=== PATIENT | male | born 1965 | race Caucasian/White ===

== ENCOUNTER 2022-06-18 09:54 | Day surgery (SDC) | payer OTHER ==
[2022-06-18] MEDS ORDERED: Sodium Bicarbonate 2.5 MEQ/5 ML VIAL ONE (10:00)
[2022-06-18] MEDS ORDERED: Lidocaine 1% PF 5 ML VIAL ONE (10:00)
[2022-06-18 11:10] VITALS: BP 120/84; TEMP 97.8
== END 2022-06-18 11:00 | disposition home or self-care (01) ==
LOC: ULT 09:54
PROVIDERS: ATTEND Family Medicine
PROC: 0G9G3ZX Drainage of Left Thyroid Gland Lobe, Percutaneous Approach, Diagnostic (ICD-10-PCS; principal; 2022-06-18)
DX: E04.1 Nontoxic single thyroid nodule (principal)
CPT/HCPCS: 10005; 88173; 88305

== ENCOUNTER 2025-01-18 19:31 | Inpatient (IN) | payer OTHER ==
[~2025-01-18 19:31] MED LIST: Iopamidol-370 76% 500 ML MDV (1 ML CHARGE) ONE
[2025-01-18 20:07] LABS: Bacteria/HPF 2+ HPF (None Seen); CAUTI Indications for Culture Acute Hematuria; Glucose, Urine (Dipstick) Normal (Negative); Leukocyte 500 Leu/uL (Negative); Protein, Urine (Dipstick) 100 mg/dL (Neg-Trace); RBC/HPF Greater than 50 HPF (0-3); Specific Gravity, Urine 1.010 (1.002-1.036); WBC/HPF Greater than 50 HPF (0-3)
[2025-01-18 20:09] LABS: Urine Culture Reflex Yes Yes
[2025-01-19 00:04] LABS: #Basophils 0.08 10x3/uL (0.0-0.2); #Eosinophils 0.14 10x3/uL (0.0-0.7); #Monocytes 0.77 10x3/uL (0.11-0.59); #Neutrophils 8.36 10x3/uL (1.40-6.50); %Basophils 0.7 % (0.0-1.0); %Eosinophils 1.3 % (0.0-10.0); %Lymphocytes 15.7 % (21.0-51.0); %Monocytes 6.9 % (0.0-10.0); %Neutrophils 75.1 % (42.0-75.0); Hematocrit 47.2 % (42.0-52.0); Hemoglobin 15.8 g/dL (14.0-18.0); Mean Corpuscular Hemoglobin 29.9 pg (27.0-31.0); Mean Corpuscular Volume 89.4 fL (78.0-98.0); Platelet Count 255 10x3/uL (130-400); Red Blood Cell (RBC) Count 5.28 mill/uL (4.70-6.10); White Blood Cell (WBC) Count 11.13 10x3/uL (4.8-10.8)
[2025-01-19 00:18] LABS: ALT (SGPT) 16 U/L (Less than 45); AST (SGOT) 24 U/L (11-34); Albumin 4.6 g/dL (3.1-4.5); Alkaline Phosphatase 81 U/L (40-110); Anion Gap 16 mmol/L (10-20); BUN (Urea Nitrogen) 18 mg/dL (8.4-25.7); Bilirubin, Total 0.4 mg/dL (0.3-1.2); Calc. Creatinine Clearance 0 mL/min (70-130); Calcium 9.7 mg/dL (7.8-10.44); Carbon Dioxide 25 mmol/L (22-29); Chloride 104 mmol/L (98-107); Globulin 3.5 g/dL (2.4-3.5); Glucose 111 mg/dL (70-105); Potassium 3.8 mmol/L (3.5-5.1); Sodium 141 mmol/L (136-145)
[2025-01-19] MEDS ORDERED: Ondansetron PF 4 MG/2 ML Vial IVP PRN (04:34)
[2025-01-19] MEDS ORDERED: Senokot S 8.6-50 MG TAB PO PRN (04:34)
[2025-01-19] MEDS ORDERED: Calcium Carbonate 500 MG ChewTAB PO PRN (04:34)
[2025-01-19] MEDS ORDERED: Bisacodyl 10 MG SUPP PR PRN (04:34)
[2025-01-19] MEDS ORDERED: Guaifenesin DM 100-10/5 ML UDCUP PO PRN (04:34)
[2025-01-19] MEDS ORDERED: Melatonin 3 MG TAB PO PRN (04:34)
[2025-01-19] MEDS ORDERED: Electrolyte Replacement Protocol 1 EACH FS SCH (04:45)
[2025-01-19] MEDS ORDERED: Potassium Chloride 20 MEQ in Premix 1 BAG IVPB PRN (04:45)
[2025-01-19] MEDS ORDERED: PHOS-NAK 1 PKT PACK PO PRN (04:45)
[2025-01-19] MEDS ORDERED: Magnesium 2 GM/50 ML(in water) 2 GM in Premix 1 BAG IVPB PRN (04:45)
[2025-01-19] MEDS ORDERED: Acetaminophen 325 MG TAB ONE (05:57)
[2025-01-19 09:38] VITALS: BMI 20.9
[2025-01-19 13:17] LABS: Hematocrit 40.5 % (42.0-52.0); Hemoglobin 13.6 g/dL (14.0-18.0)
[2025-01-19] MEDS: HYDROcodone/Acetaminophen 5/325 mg Tablet PO PRN (14:50)
[2025-01-19 20:29] LABS: Hematocrit 38.5 % (42.0-52.0); Hemoglobin 12.9 g/dL (14.0-18.0)
[2025-01-20 07:21] LABS: #Basophils 0.09 10x3/uL (0.0-0.2); #Eosinophils 0.26 10x3/uL (0.0-0.7); #Monocytes 0.61 10x3/uL (0.11-0.59); #Neutrophils 5.25 10x3/uL (1.40-6.50); %Basophils 1.1 % (0.0-1.0); %Eosinophils 3.1 % (0.0-10.0); %Lymphocytes 25.1 % (21.0-51.0); %Monocytes 7.3 % (0.0-10.0); %Neutrophils 63.3 % (42.0-75.0); Hematocrit 43.5 % (42.0-52.0); Hemoglobin 14.2 g/dL (14.0-18.0); Mean Corpuscular Hemoglobin 29.9 pg (27.0-31.0); Mean Corpuscular Volume 91.6 fL (78.0-98.0); Platelet Count 197 10x3/uL (130-400); Red Blood Cell (RBC) Count 4.75 mill/uL (4.70-6.10); White Blood Cell (WBC) Count 8.30 10x3/uL (4.8-10.8)
[2025-01-20 07:52] LABS: Anion Gap 13 mmol/L (10-20); BUN (Urea Nitrogen) 14 mg/dL (8.4-25.7); Calc. Creatinine Clearance 82 mL/min (70-130); Calcium 9.0 mg/dL (7.8-10.44); Carbon Dioxide 27 mmol/L (22-29); Chloride 106 mmol/L (98-107); Glucose 103 mg/dL (70-105); Potassium 3.8 mmol/L (3.5-5.1); Sodium 142 mmol/L (136-145)
[2025-01-20] MEDS: Acetaminophen 325 MG TAB PO PRN (11:28)
[2025-01-21 06:38] LABS: #Basophils 0.08 10x3/uL (0.0-0.2); #Eosinophils 0.26 10x3/uL (0.0-0.7); #Monocytes 0.65 10x3/uL (0.11-0.59); #Neutrophils 5.56 10x3/uL (1.40-6.50); %Basophils 1.0 % (0.0-1.0); %Eosinophils 3.1 % (0.0-10.0); %Lymphocytes 20.8 % (21.0-51.0); %Monocytes 7.8 % (0.0-10.0); %Neutrophils 67.1 % (42.0-75.0); Hematocrit 44.6 % (42.0-52.0); Hemoglobin 15.4 g/dL (14.0-18.0); Mean Corpuscular Hemoglobin 30.3 pg (27.0-31.0); Mean Corpuscular Volume 87.8 fL (78.0-98.0); Platelet Count 196 10x3/uL (130-400); Red Blood Cell (RBC) Count 5.08 mill/uL (4.70-6.10); White Blood Cell (WBC) Count 8.30 10x3/uL (4.8-10.8)
[2025-01-21 06:52] LABS: Anion Gap 15 mmol/L (10-20); BUN (Urea Nitrogen) 11 mg/dL (8.4-25.7); Calc. Creatinine Clearance 104 mL/min (70-130); Calcium 9.5 mg/dL (7.8-10.44); Carbon Dioxide 24 mmol/L (22-29); Chloride 105 mmol/L (98-107); Glucose 107 mg/dL (70-105); Potassium 4.0 mmol/L (3.5-5.1); Sodium 140 mmol/L (136-145)
[2025-01-22 00:03] VITALS: TEMP 97.3
[2025-01-22 06:24] LABS: Anion Gap 10 mmol/L (10-20); BUN (Urea Nitrogen) 17 mg/dL (8.4-25.7); Calc. Creatinine Clearance 111 mL/min (70-130); Calcium 9.2 mg/dL (7.8-10.44); Carbon Dioxide 27 mmol/L (22-29); Chloride 107 mmol/L (98-107); Glucose 101 mg/dL (70-105); Potassium 4.1 mmol/L (3.5-5.1); Sodium 140 mmol/L (136-145)
[2025-01-22 06:30] LABS: #Basophils 0.07 10x3/uL (0.0-0.2); #Eosinophils 0.27 10x3/uL (0.0-0.7); #Monocytes 0.58 10x3/uL (0.11-0.59); #Neutrophils 4.73 10x3/uL (1.40-6.50); %Basophils 1.0 % (0.0-1.0); %Eosinophils 3.7 % (0.0-10.0); %Lymphocytes 22.2 % (21.0-51.0); %Monocytes 8.0 % (0.0-10.0); %Neutrophils 64.8 % (42.0-75.0); Hematocrit 42.3 % (42.0-52.0); Hemoglobin 14.2 g/dL (14.0-18.0); Mean Corpuscular Hemoglobin 29.8 pg (27.0-31.0); Mean Corpuscular Volume 88.7 fL (78.0-98.0); Platelet Count 203 10x3/uL (130-400); Red Blood Cell (RBC) Count 4.77 mill/uL (4.70-6.10); White Blood Cell (WBC) Count 7.29 10x3/uL (4.8-10.8)
[2025-01-22 08:40] VITALS: BP 100/63
== END 2025-01-22 14:12 | disposition home or self-care (01) | DRG 690 ==
LOC: ERS 19:31 → ERHOLD 01-19 04:39 → T4-A 01-19 08:27
PROVIDERS: ADMIT Internal Medicine; ATTEND Internal Medicine
PROC: 0T9B70Z Drainage of Bladder with Drainage Device, Via Natural or Artificial Opening (ICD-10-PCS; principal; 2025-01-19)
PROC: 3E03329 Introduction of Other Anti-infective into Peripheral Vein, Percutaneous Approach (ICD-10-PCS; 2025-01-19)
DX: N39.0 Urinary tract infection, site not specified (principal); N13.30 Unspecified hydronephrosis; F41.9 Anxiety disorder, unspecified; F17.210 Nicotine dependence, cigarettes, uncomplicated; N32.89 Other specified disorders of bladder; R33.9 Retention of urine, unspecified; F32.A Depression, unspecified; Z91.51 Personal history of suicidal behavior; Z71.6 Tobacco abuse counseling
CPT/HCPCS: 36415; 51702; 74177; 80048; 80053; 81001; 83605; 85014; 85018; 85025; 86850; 86900; 86901; 87040; 87086; 96361; 96365; 96366; J2185; Q9967